=== PATIENT | male | born 1950 | race Asian ===

== ENCOUNTER 2016-07-24 03:46 | Emergency (ER) | payer MEDICARE, MEDICAID ==
[~2016-07-24] VITALS: Ht 170.2 cm; Wt 90.9 kg
[2016-07-24] MEDS ORDERED: ADV250 IH (03:56)
[2016-07-24] MEDS ORDERED: ALBU8HFA IH (03:56)
[2016-07-24] MEDS ORDERED: SIMV5TAB6 PO (03:56)
[2016-07-24] MEDS ORDERED: HYDR25TA PO (03:56)
[2016-07-24 04:02] LABS: GLUCOSE COMMENT 1 Doctor Notified; GLUCOSE,POINT OF CARE 101 MG/DL (70-110)
[2016-07-24 04:26] VITALS: BP 155/76
== END 2016-07-24 04:26 | disposition home or self-care (01) ==
LOC: EMS 03:48
DX: J34.0 Abscess, furuncle and carbuncle of nose (principal); E11.9 Type 2 diabetes mellitus without complications; I10 Essential (primary) hypertension; E78.00 Pure hypercholesterolemia, unspecified; Z88.2 Allergy status to sulfonamides; Z88.8 Allergy status to other drugs, medicaments and biological substances
CPT/HCPCS: 82962; 99282